=== PATIENT | female | born 1940 | race Caucasian/White ===

== ENCOUNTER 2022-08-01 12:47 | Emergency (ER) | payer MEDICARE ==
[~2022-08-01] VITALS: Ht 162.6 cm; Wt 74.8 kg
[~2022-08-01 12:47] MED LIST: AMLO5TAB4 PO; LIP80 PO; LOSA25TA3 PO; NORT50CA5 PO; OMEP20CA4 PO; PRO20 PO; ROPI0.5T PO
[2022-08-01 13:46] VITALS: BP_SYST 131
[2022-08-01 14:38] LABS: BILIRUBIN,URINE NEGATIVE (NEGATIVE); BLOOD, URINE 2+ (NEGATIVE); CLARITY/URINE CLOUDY (CLEAR); COLOR,URINE YELLOW (YELLOW); GLUCOSE,URINE NEGATIVE (NEGATIVE); KETONES,URINE NEGATIVE (NEGATIVE); LEUKOCYTE ESTERASE ,URINE 3+ (NEGATIVE); NITRITE, URINE POSITIVE (NEGATIVE); PH,URINE 5.5 (5.0-8.0); PROTEIN URINE 1+ (NEGATIVE); UROBILINOGEN,URINE 0.2 (0.2-1.0)
[2022-08-01 14:51] LABS: BACTERIA,URINE MODERATE /HPF (None Seen); WBC,URINE >100 /HPF (0-3)
[2022-08-01] MEDS ORDERED: IBUP-1971 PO (15:57)
[2022-08-01] MEDS ORDERED: CIPR500T5 PO (15:57)
[2022-08-01 16:25] VITALS: BP_SYST 131
== END 2022-08-01 16:28 | disposition home or self-care (01) ==
LOC: SED 12:47
DX: N39.0 Urinary tract infection, site not specified (principal); R50.9 Fever, unspecified; R42 Dizziness and giddiness; R06.02 Shortness of breath; E11.9 Type 2 diabetes mellitus without complications; I10 Essential (primary) hypertension; Z88.6 Allergy status to analgesic agent; Z79.899 Other long term (current) drug therapy; Z20.822 Contact with and (suspected) exposure to COVID-19
CPT/HCPCS: 36415; 71045; 81000; 87086; 99284